=== PATIENT | male | born 1995 | race Caucasian/White ===

== ENCOUNTER 2021-01-15 21:42 | Emergency (ER) | payer BC, SELFPAY ==
[2021-01-15 21:42] VITALS: BP 152/96; PULSE 89; RESP 18; TEMP 36.8; O2SAT 99; BMI 33.8
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
[2021-01-15] MEDS: Diphth,Pertuss(Acell),Tet Vac 0.5 ML Vial IM (22:22)
[2021-01-15 22:24] VITALS: BP 136/75; PULSE 78; RESP 18; O2SAT 99
== END 2021-01-15 22:54 | disposition home or self-care (01) ==
LOC: ED 22:15
PROVIDERS: Emergency Provider Emergency Medicine
DX: T24.231A Burn of second degree of right lower leg, initial encounter (principal); T31.0 Burns involving less than 10% of body surface; X08.8XXA Exposure to other specified smoke, fire and flames, initial encounter; Y93.9 Activity, unspecified; Y92.9 Unspecified place or not applicable; Y99.9 Unspecified external cause status; F17.200 Nicotine dependence, unspecified, uncomplicated
CPT/HCPCS: 90471; 90715; 99282